=== PATIENT | male | born 1985 | race Two or more races ===

== ENCOUNTER 2024-09-10 19:45 | Emergency (ER) | payer OTHER, SELFPAY ==
[2024-09-10 19:53] VITALS: BP 154/110
[2024-09-10 20:10] LABS: Urine Albumin Negative (Neg - Trace); Urine Bilirubin Negative (Negative); Urine Character Clear (Clear); Urine Color Yellow; Urine Glucose Negative (Negative); Urine Ketone Negative (Negative); Urine Leukocyte Negative (Negative); Urine Nitrite Negative (Negative); Urine Occult Blood Negative (Negative); Urine Urobilinogen Negative (Neg - 1+)
[2024-09-10 20:11] LABS: % Basophils 0.3 % (0-2); % Eosinophils 0.7 % (0-6); % Immature Granulocytes 0.2 % (0-0.5); % Lymphocytes 37.6 % (20.5-51.1); % Monocytes 10.3 % (1.7-9.3); % Neutrophils 50.9 % (42.2-75.2); Absolute Eosinophils 0.1 10^3/uL (0-0.7); Absolute Lymphocytes 3.6 10^3/uL (1.2-3.4); Absolute Neutrophils 4.9 10^3/uL (1.4-6.5); Hematocrit 46.9 % (39.0-52.0); Hemoglobin 15.6 g/dL (13.0-18.0); Mean Corp Hgb Conc. 33.3 g/dL (33.0-37.0); Mean Corpuscular Hgb 29.2 pg (27.0-31.0); Mean Corpuscular Volume 87.8 fL (80.0-94.0); Mean Platelet Volume 9.2 fL (7.4-10.4); Nucleated Red Blood Cells % 0 % (-); Platelet Count 207 10^3/uL (130-400); Red Blood Cell Count 5.34 10^6/uL (4.70-6.10); Red Cell Dist. Width 13.8 % (11.5-14.5); White Blood Cell Count 9.6 10^3/uL (4.8-10.8)
[2024-09-10 20:29] LABS: ALT (SGPT) 28 U/L (0-50); AST (SGOT) 25 U/L (17-59); Alkaline Phosphatase 33 U/L (38-126); Blood Urea Nitrogen 15 mg/dl (9-20); Calcium 9.8 mg/dl (8.4-10.2); Carbon Dioxide 30 mmol/L (22-30); Chloride 102 mmol/L (98-107); Glucose 87 mg/dl (70-99); Potassium 4.1 mmol/L (3.5-5.1); Sodium 143 mmol/L (135-145); Total Bilirubin 0.9 mg/dl (0.2-1.3); Total Protein 7.6 g/dl (6.3-8.2); eGFR > 60.00
--- NOTE | 2024-09-11 00:06 | ED.GENMED ---
History of Present Illness
General
Chief Complaint: Flank Pain
Source: patient
Exam Limitations: none
Time Seen by Provider: 09/10/24 23:47
History of Present Illness
History of Present Illness:
This is a 38 year old male that comes in with c/o left lower back pain. States that he was driving his car and he got this intense lower back pain. State that it started out dull and then shot up. States that he had trouble breathing with the pain.
States that he stopped the car and switched with his . State that he tried to urinate but was unable to pee. States that the pain continued and then it would pura off. State that it came back and it would come in waves. States that he was
nauseated and did have some urinary burning. Denies any fever, chills, chest pain, SOB, abd pain, vomiting, diarrhea, headache.
Past History
Past History
ED Past Medical History: Hypercholesterolemia and Other (Migraines, Prolactinoma(tumor of the pituitary gland))
ED Past Surgical History: Orthopedic (L5-S1 herniated disc repair) and Urological (vasectomy)
Social History
Tobacco: Non-smoker
Alcohol: None
Personal:
Living: with family
Review of Systems
Review of Systems
All Other Systems: ROS reviewed and negative except as documented in HPI and ROS
Constitutional: Reports no symptoms; Denies fever or chills
EENT: Reports no symptoms
Respiratory: Reports no symptoms; Denies cough or trouble breathing
Cardiac: Reports no symptoms; Denies chest pain
ABD/GI: Reports nausea; Denies abdominal pain, vomiting or diarrhea
: Reports dysuria and flank pain (Left sided); Denies frequency or urgency
Musculoskeletal: Reports back pain (Left lower back pain)
Skin: Reports no symptoms
Neurological: Reports dizzy; Denies headache
Psychiatric: Reports no symptoms
Phy Exam
General Physical Exam
General Presentation: well appearing and no apparent distress
General age: appears stated age
General Skin: warm and dry
General Habitus: normal
General Mental: alert
General Hydration: dry mucous membranes
ENT Exam
ENT Exam: TM's normal, pharynx normal and neck supple
Eye Exam
Eye Exam: EOMI
Cardiovascular Exam
Cardiovascular Exam: regular rate/rhythm, no edema, no murmur and normal peripheral pulses
Pulmonary Exam
Pulmonary Exam: lungs clear, no respiratory distress, no rales, chest non tender, no crackles, no rhonchi, no wheezing and no cough
Gastrointestinal Exam
Gastrointestinal Exam: normal bowel sounds, non tender, soft, no organomegaly, no pulsatile mass, non distended and no cva tenderness
Musculoskeletal Exam
Musculoskeletal Exam: full ROM and no edema
Skin Exam
Skin Exam: normal color, warm/dry and no petechia
Psychiatric Exam
Psychiatric Exam: normal mood/affect
Course
Orders/Labs/Results
Orders:
Orders
09/10/24 20:03
Complete Blood Count/With Diff Urgent
Comprehensive Metabolic Panel Urgent
Urinalysis Reflex To Culture Urgent
Date Specimen was Collected: 09/10/24
Time Specimen was Collected: 19:47
09/11/24 00:05
CT Abd/pel Without Iv Or Oral Urgent
Comment:
Reason For Exam: Left flank pain
09/11/24 00:06
0.9% Sodium Chloride 500 ml [Nss] 500 ml IV BOLUS
09/11/24 00:12
Ketorolac [Toradol] 30 mg IV NOW STA
Abnormal Lab Results
09/10/24
20:03
Absolute Lymphs (auto) 3.6 H 10^3/uL
(1.2-3.4)
Absolute Monos (auto) 1.0 H 10^3/uL
(0.1-0.6)
Monocytes % 10.3 H %
(1.7-9.3)
Alkaline Phosphatase 33 L U/L
(38-126)
09/10/24 20:03
09/10/24 20:03
Alk phos slightly low. Urine negative for infection or blood
Vital Signs
Initial and Last Documented VS:
Initial Vital Signs
Temp Pulse Resp BP Pulse Ox
98.8 F 90 16 154/110 100
09/10/24 19:53 09/10/24 19:53 09/10/24 19:53 09/10/24 19:53 09/10/24 19:53
Last Documented Vital Signs
Temp Pulse Resp BP Pulse Ox
98.2 F 83 18 131/88 100
09/11/24 02:11 09/11/24 02:11 09/11/24 02:11 09/11/24 02:11 09/11/24 02:11
MDM/Problems Addressed
Differential Diagnosis Includes:
Back pain, Renal calculus
MDM/Problems Addressed:
This is a 38 year old male that comes in with c/o left sided low back pain that comes to the flank. States that he was unable to urinate and that the pain comes in waves.
Will check labs. CT scan and give IV fluids. Will also get urine and medicate for pain
Back into see patient. Explained that he has a 2mm stone that is just at the bladder. Encouraged patient to increase his water intake to 8-8oz glasses daily. Patient to strain his urine. Use Tylenol 1000mg every 6 hours and alternate with Ibuprofen
600mg every 6 hours for pain. Follow up with the Urologist. Return with any fever, increased or changing pain or any other concerns.
Chronic conditions affecting care: Other (Back surgery)
Acute Exacerbation and/or Progression of Chronic Illness:
NA
*Radiology
Radiology exam reviewed: radiology read reviewed (CT night hawk- 2mm stone in the left side of the bladder at the left UVJ with very minimal left ureter compared to the right. No bowel obstruction. NO free air or free fluid. Normal appendix.
Gallbladder is unremarkable. Few indeterminate low attenuation hepatic lesions incompletely characterized) and other (CT cont- without contrast. )
*Pulse Oximetry
Patient hypoxic: no
*EKG
Interpreted by ED Provider?: NA
Rate: EKG- N/A
*Caustic Pump Operator Interpretation
Rate: Caustic Pump Operator- N/A
*Critical Care Note
Total Time (30-74mins, 75-104mins- exclusive of procedures): Not Applicable
ED Attending Note
-
Portions of this chart may have been created with voice recognition software.� Occasional wrong word or��sound alike� substitutions may have occurred due to the inherent limitations of voice recognition software.
Discharge Plan
Departure
Patient Disposition: Home (Routine Discharge)
Date of Disposition: 09/11/24
Time of Disposition: 02:50
Patient with high blood pressure during this ER visit?: Yes
Condition: Good
Covid-19: Not Applicable
Discharge Problem:
Renal calculus, left
Instructions: Renal Colic (DC), How to Strain Your Urine, BLOOD PRESSURE
Referrals:
NONE,* [Active] -
Rebel Robins Jr., MD [Active] - Call in 1-3 days for appt
Activity Restrictions/Additional Instructions:
As discussed, you have a 2mm stone that is just at the bladder. Please increase our water intake to 8-8 oz glasses daily. You may use Tylenol 1000mg every 6 hours and alternate with Ibuprofen 600mg every 6 hours with food. Please strain your urine.
Follow up with the Urologist. IF YOU HAVE INCREASED OR CHANGING PAIN, OR YOU HAVE ANY OTHER CONCERNS PLEASE RETURN TO THE EMERGENCY ROOM.
Interventions
Interventions:
*Risk Screen - Suicide Last Done: 09/11/24 00:56
*General Assessment Last Done: 09/11/24 00:56
*Neglect/Abuse Screening Last Done: 09/11/24 00:56
*ED COVID-19 Vaccine History Last Done: 09/11/24 00:56
QX-[id number]-[id number] Assessment Last Done: 12/07/24 00:56
ED-Male Genitourinary Assessment Last Done: 09/11/24 00:56
Discharge Date and Time
Print Language: SPANISH
[2024-09-11] MEDS: TORADOL 30 MG IV (00:38)
[2024-09-11] MEDS: NSS 500 IV (00:44)
[2024-09-11 02:11] VITALS: BP 131/88
[2024-09-11] MEDS: DILAUDID 0.5 MG IV (02:54)
[2024-09-11] MEDS: ZOFRAN 4 MG IV (02:54)
== END 2024-09-11 03:16 | disposition home or self-care (01) ==
LOC: EMR 19:45
PROVIDERS: Registered Nurse; EMERGENCY PHYSICIAN Emergency Medicine
DX: N20.0 Calculus of kidney (principal); E78.00 Pure hypercholesterolemia, unspecified; Z86.018 Personal history of other benign neoplasm
CPT/HCPCS: 99284; 96374; 96375; 96361; 74176; 80053; 81003; 85025